=== PATIENT | female | born 1950 | race Caucasian/White ===

== ENCOUNTER → 2016-09-27 | Outpatient (CLI) | payer OTHER ==
[~2016-09-27] VITALS: Ht 167.6 cm; Wt 104.2 kg
[~2016-09-27] MED LIST: BENADRYL25 MG PO; CALCIUM 500 MG1 EACH PO; COUMADIN1 MG PO; DESYREL 150 MG150 MG PO; DILAUDID2 MG PO; FOLIC ACID0.4 MG PO; KLONOPIN1 MG PO; KLONOPIN2 MG PO; OMEPRAZOLE40 M1 PO; SENNA-TIME S T1 EACH PO; SEROQUEL XR150 MG PO; TYLENOL REGULA325 MG PO; VITAMIN B-12250 MCG PO; ZOLOFT100 MG PO
== END | disposition home or self-care (01) ==
LOC: AMB 08-17 12:00
PROC: 0DJD8ZZ Inspection of Lower Intestinal Tract, Via Natural or Artificial Opening Endoscopic (ICD-10-PCS; principal; 2016-09-27)
PROC: 0DJ08ZZ Inspection of Upper Intestinal Tract, Via Natural or Artificial Opening Endoscopic (ICD-10-PCS; principal; 2016-09-27)
DX: R10.31 Right lower quadrant pain (principal); R10.13 Epigastric pain; Z80.0 Family history of malignant neoplasm of digestive organs; K44.9 Diaphragmatic hernia without obstruction or gangrene
CPT/HCPCS: J2250; J3010

== ENCOUNTER 2017-07-13 14:44 | Emergency (ER) | payer OTHER ==
[~2017-07-13] VITALS: Ht 167.6 cm; Wt 98.6 kg
[2017-07-13 16:32] LABS: HEMATOCRIT 47.6 % (36.0-46.0); MCH 30.3 PG (29.0-34.0); MCHC 33.6 G/DL (30.0-36.0); MCV 90.2 FL (83-99); PLATELET COUNT 247 K/uL (156-360); RBC DIS.WIDTH-CV 12.9 % (11.8-14.6); RBC DIS.WIDTH-SD 42.5 % (39-53); RED BLOOD COUNT 5.28 M/uL (3.80-5.20); WHITE BLOOD COUNT 11.5 K/uL (4.1-10.2)
[2017-07-13 16:49] LABS: CHLORIDE 106 mEq/L (99-109); POTASSIUM 4.1 mEq/L (3.7-5.4); SODIUM 142 mEq/L (136-147)
[2017-07-13 16:52] LABS: GLUCOSE 150 mg/dL (70-99); TOTAL PROTEIN 8.5 g/dL (6.4-8.3)
[2017-07-13 16:54] LABS: TOTAL BILIRUBIN 0.5 mg/dL (0.0-1.0)
[2017-07-13 16:55] LABS: ALKALINE PHOSPHATASE 119 IU/L (3-129); CREATININE 0.8 mg/dL (0.6-1.3); GFR ESTIMATE (CALCULATED) > 59 mL/min/
[2017-07-13 16:57] LABS: AST (GOT) 30 IU/L (2-34); UREA NITROGEN (BUN) 23 mg/dL (9-23)
[2017-07-13 16:58] LABS: ALT (GPT) 35 IU/L (3-49)
[2017-07-13 17:01] LABS: TROP-I INTERPRETATION NEGATIVE; TROPONIN-I < 0.01 ng/mL (0.0-0.30)
[2017-07-13 18:16] LABS: DIRECT BILIRUBIN 0.2 mg/dL (0.0-0.3)
[2017-07-13 18:17] LABS: LIPASE 11 U/L (1.0-51.0)
[2017-07-13] MEDS ORDERED: ZOFRAN ODT4 MG PO (20:05)
[2017-07-13 20:15] VITALS: BP 113/98
== END 2017-07-13 20:15 | disposition home or self-care (01) ==
LOC: EME 14:44
DX: R11.2 Nausea with vomiting, unspecified (principal); R19.7 Diarrhea, unspecified; R10.84 Generalized abdominal pain; K57.30 Diverticulosis of large intestine without perforation or abscess without bleeding; Z90.49 Acquired absence of other specified parts of digestive tract
CPT/HCPCS: 74177; 80053; 80076; 81003; 82248; 83630; 83690; 84484; 85027; 87493; 87506; 93005; 99281; 99284; J2405; J3010; J7030